=== PATIENT | female | born 1945 | race Caucasian/White ===

== ENCOUNTER 2025-04-20 10:00 | Outpatient (RCR) | payer MEDICARE, BC, SELFPAY ==
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
--- NOTE | 2025-04-20 10:40 | OTREVAL_ITS ---
Re-Evaluation Intro: Out of Town Doctor, It has been my pleasure to treat HYUN POLO over the last 1 visits for Lymphedema stage III. Please see the progress note below for an update on the occupational therapy plan of care! Subjective Subjective: pt arrives states she does not have help with her self care Objective Objective/Function: Ankle: right 34 Lower calf: right 48cm Largest calf: right 45 Below knee: right 43cm Above knee: right 63 cm left 53cm Mid-thigh: right 106cm left 72cm Groin: right 106cm left 98 pt states she does not have family support to assist her with mtg. her LE lymphedema as pt has a right hand function only as left has no grasp of left hand due to past injury. so putting tight compression socks or velcro closure devices pt is unable to do herself. pt will work with family doctor and call her insurance company to see what HH agencies are in her area. Pt is receptive about getting home health to assist pt with LE wraps/ or helping pt with compression garments and sponge bath. pt states she did get velcro closure compression garment when she had a wound on her right leg. pt states she stopped using it.( did not know she was to cont. ) pt states she is sitting in her wc 11-12 hours a day due to her limited mobility due to increase difficulty with transfers from her -hospital bed. pt states she has a difficulty time asking for help- therapist ed. pt that not asking for help is causing more health issues at this time. Therapy will hold until pt has assistance once pt has assistance with self care therapist will ed. pt on wraps- and use of compression devices. Pt unable to get home vaso pneumatic pump due to right knee contracture at 80* Plan Plan Plan: pt will contact for agencies on home health care Goals Goals Goal: Patient will demonstrate adequate knowledge of self-bandaging by the end of the first week.: Yes Goal: Patient will demonstrate adequate knowledge of self-massage by the end of the second week.: Yes Goal: Patient will demonstrate adequate knowledge of skin care and precautions by the end of the first week.: Yes Goal: Patient will demonstrate adequate knowledge of therapeutic exercises by discharge.: Yes Goal: Patient will select an appropriate compression garment and demonstrate adequate knowledge of correct donning technique, care and wearing schedule by discharge.: Yes Patient Goals: Learn how to Manage Lymphedema and Learn how to Apply Compression Stockings Anticipated Interventions Anticipated Interventions Anticipated Interventions: Education re assistive Equipment, Education re Diagnosis, Education re Life-long lymphedema Management, Education re Self- Bandaging Techniques, Education re Skin Care and Precautions, Education re Self Massage Techniques, Education re Correct Donning Tech,Care&Wearing Sched Comp Garments, Caregiver Training and Home Program Re-Evaluation Ending Re-evaluation ending: Please do not hesitate to contact me at [phone] by phone or if you have questions or concerns regarding this new plan of care! Sincerely, Prachi March, OTR/L, CHT
== END 2025-04-20 19:00 | disposition home or self-care (01) ==
LOC: OT 10:00
DX: I89.0 Lymphedema, not elsewhere classified (principal); E66.813 Obesity, class 3; Z68.42 Body mass index [BMI] 45.0-49.9, adult; L97.911 Non-pressure chronic ulcer of unspecified part of right lower leg limited to breakdown of skin
CPT/HCPCS: 97166; 97530